=== PATIENT | male | born 1995 | race Caucasian/White ===

== ENCOUNTER 2016-05-25 13:58 | Emergency (ER) | payer SELFPAY ==
[2016-05-25] MEDS ORDERED: IPRATROPIUM/ALBUTEROL 0.5-2.5 MG/3 ML AMPUL NEB ONE (14:16)
[2016-05-25] MEDS ORDERED: LIDOCAINE 2% VISCOUS SOLN 20 ML UDCUP PO ONE (14:17)
[2016-05-25] MEDS ORDERED: MAG HYDROX/AL HYDROX/SIMETH SUSP 30 ML UDCUP PO ONE (14:17)
[2016-05-25] MEDS ORDERED: ASPIRIN 81 MG TABLET, CHEWABLE PO ONE (14:20)
--- NOTE | 2016-05-25 14:21 | ER Document Report ---
ED Medical Screen (RME) - General Chief Complaint: Chest Pain Stated Complaint: CHEST PAIN/SHORTNESS OF BREATH Time seen by provider: 14:15 Mode of Arrival: Ambulatory Information source: Patient Notes: 21 yo smoking male c/o sharp midline epigastric to substernal chest pain that radiates to both sides of chest causing it difficult to breath in and out. Does not feel like bronchitis. No recent illness. onset 0200 when he got out of the recliner. NOn tender to touch. Lungs clear to auscultation. TRAVEL OUTSIDE OF THE [place] IN LAST 30 DAYS: No - Related Data Allergies/Adverse Reactions: No Known Allergies Allergy (Verified 05/25/16 14:12) Past Medical History - Social History Chew tobacco use (# tins/day): No Frequency of alcohol use: Occasional Drug Abuse: None Physical Exam - Vital signs Vitals: Temp Pulse Resp BP Pulse Ox 98.4 F 113 H 19 159/99 H 100 05/25/16 14:14 05/25/16 14:14 05/25/16 14:14 05/25/16 14:14 05/25/16 14:14 Course - Vital Signs Vital signs: Temp Pulse Resp BP Pulse Ox 98.4 F 113 H 19 159/99 H 100 05/25/16 14:14 05/25/16 14:14 05/25/16 14:14 05/25/16 14:14 05/25/16 14:14
[2016-05-25] MEDS ORDERED: ASPIRIN 81 MG TABLET, CHEWABLE ONE (14:49)
[2016-05-25 14:55] LABS: ABSOLUTE BASOPHILS # (AUTO) 0.1 10^3/uL (0.0-0.2); ABSOLUTE EOSINOPHILS # (AUTO) 0.1 10^3/uL (0.0-0.6); ABSOLUTE LYMPHOCYTES (AUTO) 2.5 10^3/uL (0.5-4.7); ABSOLUTE MONOCYTES (AUTO) 0.9 10^3/uL (0.1-1.4); ABSOLUTE NEUT (AUTO) 10.4 10^3/uL (1.7-8.2); BASOPHILS % (AUTO) 0.4 % (0-2); EOSINOPHILS % (AUTO) 0.5 % (0-6); HEMATOCRIT 48.2 % (37.9-51.0); HEMOGLOBIN 17.3 g/dL (13.5-17.0); HGB HCT DIFFERENCE 3.7; LYMPHOCYTES % (AUTO) 17.9 % (13-45); MEAN CORPUSCULAR HEMOGLOBIN 28.9 pg (27.0-33.4); MEAN CORPUSCULAR VOLUME 81 fl (80-97); MONOCYTES % (AUTO) 6.3 % (3-13); RED BLOOD COUNT 5.99 10^6/uL (4.35-5.55); RED CELL DISTRIBUTION WIDTH 12.9 % (11.5-14.0); SEGMENTED NEUTROPHILS % (AUTO) 74.9 % (42-78); WHITE BLOOD COUNT 13.9 10^3/uL (4.0-10.5)
[2016-05-25 15:13] LABS: ALANINE AMINOTRANSFERASE 29 U/L (21-72); ALBUMIN 5.4 g/dL (3.5-5.0); ALKALINE PHOSPHATASE 98 U/L (38-126); ANION GAP 18 (5-19); ASPARTATE AMINO TRANSFERASE 20 U/L (17-59); BILIRUBIN,TOTAL 2.1 mg/dL (0.2-1.3); BLOOD UREA NITROGEN 12 mg/dL (7-20); CALCIUM 11.3 mg/dL (8.4-10.2); CARBON DIOXIDE 21 mmol/L (22-30); CHLORIDE 102 mmol/L (98-107); CREATINE KINASE 227 U/L (55-170); CREATININE RESULT 1.17 mg/dL (0.52-1.25); GLUCOSE 93 mg/dL (75-110); LIPASE 57.7 U/L (23-300); POTASSIUM 3.9 mmol/L (3.6-5.0); SODIUM 140.9 mmol/L (137-145); TOTAL PROTEIN 8.3 g/dL (6.3-8.2)
--- NOTE | 2016-05-25 15:22 | ER Document Report ---
ED General - General Chief Complaint: Chest Pain Stated Complaint: CHEST PAIN/SHORTNESS OF BREATH Mode of Arrival: Ambulatory Notes: The patient is a 21-year-old male presents with 1 day of epigastric pain, right anterior chest pain and mild shortness of breath. He also said he had entirely size body went numb for a few seconds and then his hands and feet are frozen. He has had this in the past and it resolved on its own. He denies nausea, vomiting, back pain, fevers, cough, difficulty walking, rash, headache, current numbness, tingling or ataxia. TRAVEL OUTSIDE OF THE [place] IN LAST 30 DAYS: No - Related Data Allergies/Adverse Reactions: No Known Allergies Allergy (Verified 05/25/16 14:12) Past Medical History - General Information source: Patient - Social History Smoking Status: Current Every Day Smoker Chew tobacco use (# tins/day): No Frequency of alcohol use: Occasional Drug Abuse: None Family History: Reviewed & Not Pertinent Patient has suicidal ideation: No Patient has homicidal ideation: No Review of Systems - Review of Systems Notes: REVIEW OF SYSTEMS: CONSTITUTIONAL: -fevers, -chills EENT: -eye pain, -difficulty swallowing, -nasal congestion CARDIOVASCULAR: +chest pain, -syncope. RESPIRATORY: -cough, +SOB GASTROINTESTINAL: -abdominal pain, - nausea, -vomiting, -diarrhea GENITOURINARY: -dysuria, -hematuria MUSCULOSKELETAL: -back pain, -neck pain SKIN: -rash or skin lesions. HEMATOLOGIC: -easy bruising or bleeding. LYMPHATIC: -swollen, enlarged glands. NEUROLOGICAL: -altered mental status or loss of consciousness, -headache PSYCHIATRIC: -anxiety, -depression. ALL OTHER SYSTEMS REVIEWED AND NEGATIVE. Physical Exam - Vital signs Vitals: Temp Pulse Resp BP Pulse Ox 98.4 F 113 H 19 159/99 H 100 05/25/16 14:14 05/25/16 14:14 05/25/16 14:14 05/25/16 14:14 05/25/16 14:14 - Notes Notes: PHYSICAL EXAMINATION: GENERAL: Well-appearing, well-nourished and in no acute distress. HEAD: Atraumatic, normocephalic. EYES: Pupils equal round and reactive to light, extraocular movements intact, sclera anicteric, conjunctiva are normal. ENT: nares patent, oropharynx clear without exudates. Moist mucous membranes. NECK: Normal range of motion, supple without lymphadenopathy LUNGS: Breath sounds clear to auscultation bilaterally and equal. No wheezes, rales or rhonchi. HEART: Tachycardic. Regular rhythm. ABDOMEN: Mild epigastric tenderness. Soft, normoactive bowel sounds. No guarding, no rebound. No masses appreciated. EXTREMITIES: Normal range of motion, no pitting or edema. No cyanosis. NEUROLOGICAL: Cranial nerves grossly intact. Normal speech, normal gait. Normal sensory, motor, and reflex exams. PSYCH: Normal mood, normal affect. SKIN: Warm, Dry, normal turgor, no rashes or lesions noted. Course - Re-evaluation Re-evalutation: Patient has evidence of pneumopericardium and pneumomediastinum on CT chest. Patient slightly tachycardic and tachypnea, but pain under control. Spoke to Dr. Varela (surgeon station tender) and recommends transfer for further evaluation by thoracic surgery. Called [facility] at 17:30 and awaiting return phone call from thoracic surgery. 05/25/16 17:[address] Armando Estrada ([facility] CT Surgery Attending) and he recommends a barium swallow. If the barium swallow is negative, the patient may be discharged with a repeat x-ray in 1 week. There is no surgical intervention needed at this time. He also recommends antibiotics due to the leukocytosis. Patient is not in any extremis at this time and his tachycardia has resolved. Barium swallow negative for esophageal perforation. Patient's vitals are all normal. He is not short of breath or having any chest pain. Given strict return precautions and he understands. Will send him with clindamycin. Told to call [facility] Thoracic Surgery clinic tomorrow morning for a repeat x-ray and recheck of his symptoms. If he is unable to be seen at the clinic, he understands to come back to the emergency room for repeat chest x-ray. He verbalized understanding. Answered all questions. - Vital Signs Vital signs: Temp Pulse Resp BP Pulse Ox 98.4 F 113 H 19 147/74 H 98 05/25/16 14:14 05/25/16 14:14 05/25/16 18:00 05/25/16 18:01 05/25/16 18:01 - Laboratory Result Diagrams: 05/25/16 14:45 05/25/16 14:45 Laboratory results interpreted by me: 05/25/16 05/25/16 14:45 14:45 WBC 13.9 H RBC 5.99 H Hgb 17.3 H Absolute Neutrophils 10.4 H Carbon Dioxide 21 L Calcium 11.3 H Total Bilirubin 2.1 H Creatine Kinase 227 H Total Protein 8.3 H Albumin 5.4 H - Diagnostic Test Radiology reviewed: Image reviewed, Reports reviewed Radiology results interpreted by me: CTA: No PE. Pneumomediastinum and pneumopericardium. No obvious source. Barium swallow: No evidence of esophageal perforation. - EKG Interpretation by Me EKG shows normal: Sinus rhythm, [place], Intervals - Short CA 94, QRS Complexes, ST -T Waves Discharge - Discharge Clinical Impression: Pneumomediastinum, Acute pneumopericarditis Condition: Stable Disposition: HOME, SELF-CARE Additional Instructions: You must follow-up with [facility] Thoracic Surgery [facility] in one week to repeat a chest x-ray and have your symptoms rechecked. [facility] - Cardiothoracic Surgery [address] [place] [id number] P: [phone] If you are unable to get an appointment, return to the emergency room to have a chest x-ray repeated. Take the full course of antibiotics. If you notice increasing shortness of breath, cough, fevers, worsening chest pain or any other concerns, call 911 and return immediately to the emergency room. Prescriptions: Clindamycin HCl [Cleocin 150 mg Capsule] 300 mg PO Q8 #30 capsule Hydrocodone/Acetaminophen [Shiloh 5-325 mg Tablet] 1 tab PO Q6H PRN #12 tablet PRN Reason:
[2016-05-25 15:24] LABS: CREATINE KINASE MB 2.21 ng/mL (<4.55)
[2016-05-25 15:25] LABS: TROPONIN I < 0.012 ng/mL
[2016-05-25 20:34] VITALS: BP 132/90
--- NOTE | 2016-05-25 21:39 | EKG REPORT ---
SEVERITY:- ABNORMAL ECG - SINUS RHYTHM SHORT WA INTERVAL, ACCELERATED AV CONDUCTION PROBABLE LEFT VENTRICULAR HYPERTROPHY BORDERLINE T ABNORMALITIES, INFERIOR LEADS : Confirmed by: Jem Sanchez 25-May-2016 21:38:54
== END 2016-05-25 20:34 | disposition home or self-care (01) ==
LOC: ER 13:58
DX: J98.2 Interstitial emphysema (principal); I30.9 Acute pericarditis, unspecified; R07.9 Chest pain, unspecified; R06.02 Shortness of breath; R10.13 Epigastric pain; F17.210 Nicotine dependence, cigarettes, uncomplicated
CPT/HCPCS: 93005; 94640; 99285; 36415; 82553; 82550; 83690; 85025; 80053; 84484; 85379; 71020; 74220; 71275; 93010; J3490; J7620

== ENCOUNTER 2016-06-09 19:51 | Emergency (ER) | payer SELFPAY ==
--- NOTE | 2016-06-09 20:08 | ER Document Report ---
ED Medical Screen (RME) - General Chief Complaint: Chest Pain Stated Complaint: CHEST PAIN Time seen by provider: 20:05 Mode of Arrival: Ambulatory Information source: Patient Notes: 21-year-old male presents to ED for chest pain in the lower chest bilaterally. States the pain is been all afternoon. He was seen in the emergency room on 2 weeks ago. States he was told he had a air pocket around his heart. States now he cannot lay down flat and breathe. Pain is getting worse. States he went to [facility] yesterday and they told him that all the tests were negative but pain is back again today and is not able to lay flat. I have greeted and performed a rapid initial assessment of this patient. A comprehensive ED assessment and evaluation of the patient, analysis of test results and completion of medical decision making process will be conducted by an additional ED providers. TRAVEL OUTSIDE OF THE [place] IN LAST 30 DAYS: No - Related Data Allergies/Adverse Reactions: No Known Allergies Allergy (Verified 05/25/16 14:12)
[2016-06-09] MEDS ORDERED: ASPIRIN 81 MG TABLET, CHEWABLE PO ONE (20:09)
== END 2016-06-09 21:56 | disposition left against medical advice (07) ==
LOC: ER 19:51
DX: R07.9 Chest pain, unspecified (principal)
CPT/HCPCS: 71020; 99281

== ENCOUNTER 2016-09-21 16:54 | Emergency (ER) | payer OTHER ==
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
[2016-09-21] MEDS ORDERED: HYDROCODONE/ACETAMINOPHEN 5-325 MG 6 TAB/DSPK PO PRN (20:52)
[2016-09-21 20:59] VITALS: BP 157/84
== END 2016-09-21 20:57 | disposition home or self-care (01) ==
LOC: ER 16:54
DX: S40.012A Contusion of left shoulder, initial encounter (principal); F17.200 Nicotine dependence, unspecified, uncomplicated; V89.2XXA Person injured in unspecified motor-vehicle accident, traffic, initial encounter
CPT/HCPCS: 99283

== ENCOUNTER 2017-07-02 00:16 | Emergency (ER) | payer SELFPAY ==
[2017-07-02] MEDS ORDERED: ACETAMINOPHEN 325 MG TABLET PO ONE (00:22)
[2017-07-02] MEDS ORDERED: ONDANSETRON HCL INJ/PF 4 MG/2 ML SDV IV ONE (00:47)
[2017-07-02] MEDS ORDERED: NORMAL SALINE 1000 ML 1,000 ML IV ONE (00:47)
[2017-07-02] MEDS ORDERED: IBUPROFEN 600 MG TABLET PO ONE (01:08)
[2017-07-02 01:23] LABS: BLOOD UREA NITROGEN 11 mg/dL (7-20); CALCIUM 9.4 mg/dL (8.4-10.2); GLUCOSE 121 mg/dL (75-110)
[2017-07-02 01:24] LABS: ANION GAP 12 (5-19); CARBON DIOXIDE 22 mmol/L (22-30); CHLORIDE 104 mmol/L (98-107); SODIUM 138.3 mmol/L (137-145)
[2017-07-02] MEDS ORDERED: POTASSIUM CHLORIDE 20 MEQ/15 ML UDCUP PO ONE (01:32)
[2017-07-02] MEDS ORDERED: ONDANSETRON ODT 4 MG TAB (6 TAB/ER DISP) PO PRN (01:33)
[2017-07-02] MEDS ORDERED: MAGNESIUM OXIDE 400 MG TABLET PO ONE (01:34)
--- NOTE | 2017-07-02 01:34 | ER Document Report ---
ED General - General Chief Complaint: Flu Symptoms Stated Complaint: FEVER Time Seen by Provider: 07/02/17 00:47 Notes: Patient is a 22-year-old male without past medical history, current everyday tobacco user who presents with 2 days of shortness of breath, intermittent cough , and persistent vomiting. Patient reports that today when his fever climbed up to 103F and he was unable to keep any fluid down he decided to come to the emergency department. He denies a history of similar symptoms in the past. He has been trying Tylenol and ibuprofen with moderate improvement of his fever but no resolution of his vomiting. No known sick contacts. He did not receive an influenza vaccine this year. He has not seen his primary care doctor regarding today's concerns. He denies any syncope, diarrhea, abdominal pain, headache or neck pain. He has not noted that anything worsens his symptoms. TRAVEL OUTSIDE OF THE [place] IN LAST 30 DAYS: No - Related Data Allergies/Adverse Reactions: No Known Allergies Allergy (Verified 09/21/16 17:07) Past Medical History - General Information source: Patient - Social History Smoking Status: Current Every Day Smoker Frequency of alcohol use: None Drug Abuse: None Lives with: Spouse/Significant other Family History: Reviewed & Not Pertinent Renal/ Medical History: Denies: Hx Peritoneal Dialysis Past Surgical History: Reports: Hx Oral Surgery, Hx Orthopedic Surgery, Hx Tonsillectomy - Immunizations Hx Diphtheria, Pertussis, Tetanus Vaccination: Yes Review of Systems - Review of Systems Notes: Constitutional: Positive for fever. HENT: Negative for sore throat. Eyes: Negative for visual changes. Cardiovascular: Negative for chest pain. Respiratory: Positive for shortness of breath. Gastrointestinal: Negative for abdominal pain, positive for vomiting Genitourinary: Negative for dysuria. Musculoskeletal: Negative for back pain. Skin: Negative for rash. Neurological: Negative for headaches, weakness or numbness. 10 point ROS negative except as marked above and in HPI. Physical Exam - Vital signs Vitals: Temp Pulse Resp BP Pulse Ox 101.4 F H 122 H 18 123/67 97 07/02/17 00:18 07/02/17 00:18 07/02/17 00:18 07/02/17 00:18 07/02/17 00:18 Interpretation: Tachycardic, Febrile Notes: PHYSICAL EXAMINATION: GENERAL: Appears moderately uncomfortable but in no acute distress HEAD: Atraumatic, normocephalic. EYES: Pupils equal round and reactive to light, extraocular movements intact, sclera anicteric, conjunctiva are normal. ENT: nares patent, oropharynx clear without exudates. Dry mucous membranes. NECK: Normal range of motion, supple without lymphadenopathy LUNGS: Breath sounds clear to auscultation bilaterally and equal. No wheezes rales or rhonchi. HEART: Regular tachycardia without murmurs ABDOMEN: Soft, nontender, normoactive bowel sounds. No guarding, no rebound. No masses appreciated. EXTREMITIES: Normal range of motion, no pitting or edema. No cyanosis. NEUROLOGICAL: No focal neurological deficits. Moves all extremities spontaneously and on command. PSYCH: Normal mood, normal affect. SKIN: Warm, Dry, normal turgor, no rashes or lesions noted. Course - Re-evaluation Re-evalutation: 07/02/17 01:31 Patient presents with cough, vomiting, diarrhea, and fever at home consistent with a flulike illness although unable to verify due to the absence of flu testing ability. Clinical history and exam is not consistent with an acute bacterial meningitis, encephalitis, pneumonia, there is no evidence of a cellulitis on examination. Patient likewise denies any urinary symptoms. Patient does not have any focal abdominal tenderness to suggest an acute biliary pathology, acute appendicitis, acute mesenteric ischemia, bowel obstruction, bowel, or any other life-threatening acute intra-abdominal pathology as the etiology of the fever and additional symptoms today. Labs are otherwise with the exception of mild hypokalemia likely secondary to his persistent vomiting. Potassium has been repleted with 40 mEq of oral potassium as well as 800 mg of oral magnesium. Patient has tolerated oral intake without difficulty. Vitals at time of reassessment are within normal limits. At this time will discharge with return precautions and follow-up recommendations. Verbal discharge instructions given a the bedside and opportunity for questions given. Medication warnings reviewed. Patient is in agreement with this plan and has verbalized understanding of return precautions and the need for primary care follow-up in the next 24-72 hours. - Vital Signs Vital signs: Temp Pulse Resp BP Pulse Ox 101.4 F H 122 H 18 126/78 H 97 07/02/17 00:18 07/02/17 00:18 07/02/17 02:23 07/02/17 02:23 07/02/17 02:23 - Laboratory Result Diagrams: 07/02/17 00:58 Laboratory results interpreted by me: 07/02/17 00:58 Potassium 3.0 L* Glucose 121 H Discharge - Discharge Clinical Impression: Influenza, Hypokalemia, Dehydration Vomiting Qualifiers: Vomiting type: unspecified Vomiting Intractability: non-intractable Nausea presence: with nausea Qualified Code(s): R11.2 - Nausea with vomiting, unspecified Condition: Good Disposition: HOME, SELF-CARE Additional Instructions: Your symptoms are likely due to a viral infection either influenza or similar virus. The only treatment at this time is supportive care including drinking plenty of fluids, Tylenol and ibuprofen, as well as nausea medicines which you will be sent home with. Your symptoms will likely last for 7-10 days. Please return to the emergency department immediately if you become confused, have persistent vomiting, pass out, have severe headache, or have any other symptoms that are worrisome to you. Follow-up with your primary care doctor in the next several days.
[2017-07-02 02:46] VITALS: BP 122/57
--- NOTE | 2017-07-02 08:57 | EKG REPORT ---
SEVERITY:- ABNORMAL ECG - SINUS TACHYCARDIA NONSPECIFIC T ABNORMALITIES, INFERIOR LEADS : Confirmed by: Jem Sanchez 02-Jul-2017 08:56:03
== END 2017-07-02 03:05 | disposition home or self-care (01) ==
LOC: ER 00:16
DX: J11.1 Influenza due to unidentified influenza virus with other respiratory manifestations (principal); R11.2 Nausea with vomiting, unspecified; E86.0 Dehydration; E87.6 Hypokalemia; R06.02 Shortness of breath; R05 Cough; R50.9 Fever, unspecified; F17.200 Nicotine dependence, unspecified, uncomplicated; R19.7 Diarrhea, unspecified
CPT/HCPCS: 93005; 99284; 96361; 96374; 36415; 80048; 93010; J2405; J7030

== ENCOUNTER 2018-01-16 03:04 | Emergency (ER) | payer SELFPAY ==
[2018-01-16 03:18] VITALS: BP 158/90
== END 2018-01-16 05:00 | disposition left against medical advice (07) ==
LOC: ER 03:04
DX: Z53.21 Procedure and treatment not carried out due to patient leaving prior to being seen by health care provider (principal)

== ENCOUNTER 2018-01-16 16:14 | Emergency (ER) | payer OTHER ==
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
--- NOTE | 2018-01-16 17:58 | RADIOLOGY REPORT (SQ) ---
EXAM DESCRIPTION: ELBOW LEFT OVER 2 VIEWS COMPLETED DATE/TIME: 01/16/2018 5:48 pm REASON FOR STUDY: ? needle in arm needle broke off COMPARISON: None. NUMBER OF VIEWS: Four views. TECHNIQUE: AP, lateral, and both oblique radiographic images acquired of the left elbow. LIMITATIONS: None. FINDINGS: MINERALIZATION: Normal. BONES: No acute fracture or dislocation. No worrisome bone lesions. JOINT: No effusion. SOFT TISSUES: A 1 cm long metallic needle is seen in the antecubital fossa marked with a prairie band. OTHER: No other significant finding. IMPRESSION: 1 cm long metallic needle fragment in the antecubital fossa soft tissues. TECHNICAL DOCUMENTATION: JOB ID: [id number] [email or web address] All Rights Reserved Reading location - IP/workstation name: [email or web address]
[2018-01-16 18:22] VITALS: BP 155/89
--- NOTE | 2018-01-17 07:34 | CONSULTATION REPORT E ---
Consultation Report NAME: AVRIL MILAN : 1995 AGE: 23Y DATE: 01/16/2018 TO: FE NATION M.D. FROM: Frances LONG, Requesting Physician TELEPHONE CONSULTATION REFERRING PHYSICIAN: Chris Orozco NP REPORT OF CONSULTATION: I received a phone call as the on-call surgicalist at approximately 5:45 p.m. on 01/16/2018, about the patient, a 23-year-old white male who was reportedly injecting methamphetamine into his left arm intravenously. A needle broke off, and he presented to the emergency department. He was actually seen the day before and left without being seen. Imaging of the left arm revealed a tiny foreign body consistent with a needle, left arm. The patient had beverages at bedside while being evaluated in the emergency department. PAST MEDICAL AND SURGICAL HISTORY: Given at the time of the history and physical, documented. PHYSICAL EXAMINATION: The physical exam was performed by nurse practitioner There was no evidence of sepsis of the left forearm. No obvious foreign body could be visualized or palpated. IMPRESSION: Retained foreign body, left forearm in intravenous drug abuser. RECOMMENDATIONS: 1. The patient is not NPO; per the records it is 6 to 8 hours. It is Thursday evening and inappropriate to call in the operating room team after 10:00 p.m. to perform a semi-elective procedure. 2. We have discharged the patient home; I spoke with him at approximately 7:40 p.m. by phone. I told him to return to the emergency department tomorrow, 01/17/2018, and to stay NPO after midnight. We will take him to the operating room and perform exploration left forearm with imaging to assist in the foreign body localization. DICTATING PHYSICIAN: FE NATION M.D. [id number] PHY#: [id number] ID: [id number] JOB#: [id number] ACCT: [id number] cc:FE NATION M.D. > [email or web address]
== END 2018-01-16 18:24 | disposition home or self-care (01) ==
LOC: ER 16:14
DX: S40.852A Superficial foreign body of left upper arm, initial encounter (principal); W45.8XXA Other foreign body or object entering through skin, initial encounter; F19.10 Other psychoactive substance abuse, uncomplicated; F17.200 Nicotine dependence, unspecified, uncomplicated
CPT/HCPCS: 99283

== ENCOUNTER 2018-01-17 06:54 | Day surgery (SDC) | payer OTHER ==
--- NOTE | 2018-01-17 07:51 | PDOC H&P ---
History of Present Illness Admission Date/PCP: Wednesday, January 17, 2018 Patient complains of: Foreign body left arm History of Present Illness: AVRIL MILAN is a 23 year old male Who is an IV drug abuser presents to the emergency department for the third time in 3 days complaining of retained foreign body left antecubital fossa consistent with broken needle fragment. Patient was in the emergency department 2 days ago, left without being seen. He was seen back to the emergency department yesterday where he was evaluated by the nurse practitioner , found by x-ray to have a retained foreign body consistent with needle fragment as the patient had consumed beverages just prior to the evaluation, and is approximately 6 PM, it was considered inappropriate to bring the entire operating room Thursday night, midnight, to perform this otherwise semi- elective procedure. The patient had no evidence of sepsis. Arrangements were made for the procedure to be performed Thursday a.m. by Dr. Montelongo. The patient returns to also [facility] as scheduled this morning. He is evaluated, found to be in appropriate condition for foreign body removal. Bedside ultrasonography performed by Dr. Montelongo revealed retention of small needle fragment just lateral, and parallel to the medial cubital vein.. Past Medical History Medical History: None Past Surgical History Past Surgical History: Multiple tattoos Past Surgical History: Reports: Orthopedic Surgery, Tonsillectomy, Other - Umbilical hernia repair Social History Information Source: Patient Smoking Status: Current Every Day Smoker Frequency of Alcohol Use: Social Hx Recreational Drug Use: Yes Drugs: Other - Methamphetamine Family History Family History: Reviewed & Not Pertinent Parental Family History Reviewed: Yes Children Family History Reviewed: Yes Sibling(s) Family History Reviewed.: Yes Medication/Allergy Home Medications: No Home Medications 01/17/18 Allergies/Adverse Reactions: No Known Allergies Allergy (Verified 01/17/18 06:56) Review of Systems Constitutional: ABSENT: chills, fever(s), headache(s), weight gain, weight loss Eyes: ABSENT: visual disturbances Ears: ABSENT: hearing changes Cardiovascular: ABSENT: chest pain, dyspnea on exertion, edema, orthropnea, palpitations Respiratory: ABSENT: cough, hemoptysis Gastrointestinal: ABSENT: abdominal pain, constipation, diarrhea, hematemesis, hematochezia, nausea, vomiting Genitourinary: ABSENT: dysuria, hematuria Endocrine: ABSENT: cold intolerance, heat intolerance, polydipsia, polyuria Physical Exam Vital Signs: Temp Pulse Resp BP Pulse Ox 97.9 F 91 20 168/93 H 100 01/17/18 06:59 01/17/18 06:59 01/17/18 06:59 01/17/18 06:59 01/17/18 06:59 Intake & Output 01/16/18 01/17/18 01/18/18 06:59 06:59 06:59 Weight 81.8 kg General appearance: PRESENT: no acute distress Head exam: PRESENT: normocephalic Eye exam: PRESENT: EOMI Ear exam: PRESENT: other Mouth exam: PRESENT: other - Poor dentition Teeth exam: PRESENT: poor dentation Neck exam: PRESENT: full ROM Respiratory exam: PRESENT: wheezes Cardiovascular exam: PRESENT: RRR Pulses: PRESENT: normal carotid pulses, normal radial pulses, normal femoral pulses GI/Abdominal exam: PRESENT: other - Small recurrent umbilical hernia Rectal exam: PRESENT: deferred Extremities exam: PRESENT: other - Extensive tattoos; multiple scars; recent healed over areas along the antecubital fossa with minimal erythema and induration etc. Neurological exam: PRESENT: alert, awake, oriented to person, oriented to place , oriented to time, oriented to situation Psychiatric exam: PRESENT: appropriate affect, other - Patient appropriate, cooperative with the exam Assessment & Plan - Diagnosis (1) Foreign body of upper arm Is this a current diagnosis for this admission?: Yes Plan: Impression: Retained foreign body left forearm consistent with needle fragment; no evidence of soft tissue sepsis Recommendations: 1. Proceed with foreign body extraction in the operating room, under LMAC anesthesia, with ultrasound and/or fluoroscopy imaging to assist in localization. Risks benefits alternatives plan procedure explained to patient including bleeding, infection, and failure to retrieve foreign body 2. Anticipate patient discharged after procedure. (2) Smoker Is this a current diagnosis for this admission?: Yes (3) IV drug user Is this a current diagnosis for this admission?: Yes - Time Time Spent: 30 to 50 Minutes Critical Time spent with patient: Less than 15 minutes Medications reviewed and adjusted accordingly: Yes Anticipated discharge: Home
[2018-01-17] MEDS ORDERED: MIDAZOLAM 2 MG/2 ML INJ ONE (08:58)
[2018-01-17] MEDS ORDERED: DEXAMETHASONE SOD PHOSPHATE INJ 4 MG/1 ML VIAL ONE (08:58)
[2018-01-17] MEDS ORDERED: ONDANSETRON HCL INJ/PF 4 MG/2 ML SDV ONE (08:58)
[2018-01-17] MEDS ORDERED: FENTANYL CITRATE INJ/PF 100 MCG/2 ML AMPUL ONE (08:58)
[2018-01-17] MEDS ORDERED: MORPHINE SULFATE 10 MG/ML INJ ONE (08:59)
[2018-01-17] MEDS ORDERED: PROPOFOL INJ 200 MG/20 ML VIAL IV ONE (08:59)
[2018-01-17] MEDS ORDERED: CEFAZOLIN INJ 1 GM VIAL ONE (09:18)
[2018-01-17] MEDS ORDERED: BUPIVACAINE HCL 0.5 % INJ/PF 30 ML SDV ONE (09:18)
[2018-01-17] MEDS ORDERED: OXYCODONE-ACETAMINOPHEN 5-325 MG TABLET PO PRN ×2 (09:38)
[2018-01-17] MEDS ORDERED: DIPHENHYDRAMINE HCL 50 MG/ML VIAL IV PRN (09:38)
[2018-01-17] MEDS ORDERED: MORPHINE SULFATE 10 MG/ML INJ IV PRN (09:38)
[2018-01-17] MEDS ORDERED: PROMETHAZINE HCL INJ 25 MG/1 ML VIAL IV PRN ×2 (09:38)
[2018-01-17] MEDS ORDERED: FENTANYL CITRATE INJ/PF 100 MCG/2 ML AMPUL IV PRN ×3 (09:38)
[2018-01-17] MEDS ORDERED: MEPERIDINE HCL/PF INJ 25 MG/1 ML DISP.SYRIN IV PRN (09:38)
--- NOTE | 2018-01-17 10:07 | Operative Report ---
Operative Report DATE OF SURGERY: 01/17/18 PREOPERATIVE DIAGNOSIS: Retained foreign body left antecubital fossa consistent with needle fragment. IV drug abuser POSTOPERATIVE DIAGNOSIS: Same OPERATION: 1. Focused ultrasound of the left upper extremity needed. 2. Ultrasound directed duration of left antecubital fossa, dissection of left cephalic vein, extraction of foreign body consistent with needle fragment from scar tissue surrounding left cephalic vein SURGEON: FE NATION ANESTHESIA: LMAC TISSUE REMOVED OR ALTERED: Foreign body left arm COMPLICATIONS: None ESTIMATED BLOOD LOSS: Minimal INTRAOPERATIVE FINDINGS: See below PROCEDURE: The patient was taken to the preop holding her to the main operating room where LMAC anesthesia was induced. Left arm was prepped and draped in sterile fashion. Surgical plan surgical timeout conducted. Flexible ultrasonography was performed with a variable frequency linear transducer the left antecubital fossa. Findings were significant for a patent left cephalic vein, and a approximately 1 cm longitudinally oriented foreign body consistent with needle fragment anterior lateral to the left cephalic vein just proximal to the confluence of the median cubital vein. The skin was anesthetized with quarter percent Marcaine. Approximately 2-1/2 cm incision was only over the targeted foreign body. Subcutaneous tissue was divided with scissors. The underlying cephalic vein was dissected out. There is a significant amount of scar tissue. Using ultrasound as a guide, we did not see the foreign body the subcutaneous tissue. I therefore got around the cephalic vein completely with a right angle clamp, and placed Ortiz ties proximally and distally with denny loops. We were now able to see the retained foreign body consistent with needle fragment embedded in the wall of the cephalic vein. This is a very scarred vein but it was patent by ultrasonographic criteria. We carefully dissected out the small needle fragment and removed from the patient's cephalic vein wall. It measured approximately 8 mm consistent with the preoperative radiologic x-ray performed on January 16, 2018. There was no evidence of violation to the lumen of the cephalic vein. Loops were removed, wound irrigated, and incision closed with a running 4-0 Ethilon suture. Benzoin Steri-Strips applied. Patient tolerated procedure well. The specimen moved from the patient, the 8 mm needle fragment, was retained in a specimen cup. The patient was taken to recovery in stable condition.
[2018-01-17] MEDS ORDERED: CEFAZOLIN 1 GM/D5W RTU 1 GM/50 ML RTUPB IV SCH (12:00)
[2018-01-17 12:33] VITALS: BP 143/76
== END 2018-01-17 11:05 | disposition home or self-care (01) ==
LOC: EDSTATUS 07:23 → ASU 07:25
DX: M79.5 Residual foreign body in soft tissue (principal); F17.210 Nicotine dependence, cigarettes, uncomplicated
CPT/HCPCS: 10121; J2250; J3490; J0690; J1100; J3010; J2270; J2405; J2704; 400